=== PATIENT | female | born 1935 | race Caucasian/White ===

== ENCOUNTER 2019-02-27 11:01 | Emergency (ER) | payer MEDICARE ==
[2019-02-27 11:12] VITALS: BP 170/72
[2019-02-27] MEDS ORDERED: CIPROFLOXACIN HCL/DEXAMETH OTIC DROP 7.5 ML AU ONE (13:25)
--- NOTE | 2019-02-27 14:10 | ER Document Report ---
HPI - HPI Patient complains to provider of: Bilateral ear pain Time Seen by Provider: 02/27/19 13:19 Pain Level: 2 Context: Patient is an 83-year-old female presents to the emergency department for bilateral ear pain. Patient states she has had bilateral ear pains for the last couple of months. States at times it is hard for her to hear out of both ears. Patient's son is in the room states she has not seen a doctor in "for ever", states she has no medical problems. Patient's denying taking any known medications. Patient states "I always have a runny nose." Denies cough or fever. - CONSTITUTIONAL Constitutional: DENIES: Fever, Chills - EENT EENT: REPORTS: Ear Pain Past Medical History - General Information source: Patient, Relative - Social History Smoking Status: Unknown if Ever Smoked Family History: Reviewed & Not Pertinent Patient has suicidal ideation: No Patient has homicidal ideation: No Renal/ Medical History: Denies: Hx Peritoneal Dialysis Vertical Provider Document - CONSTITUTIONAL Agree With Documented VS: Yes Notes: GENERAL: Alert, interacts well. No acute distress. HEAD: Normocephalic, atraumatic. EYES: Pupils equal, round, and reactive to light. Extraocular movements intact. ENT: Oral mucosa moist, tongue midline. Nares patent, pharynx within normal limits no palatal petechiae noted. TM's non visualized due to swelling noted in canal. Tragal tenderness noted bilaterally. No mastoid erythema or tenderness noted bilaterally. NECK: Full range of motion. Supple. Trachea midline. LUNGS: Clear to auscultation bilaterally, no wheezes, rales, or rhonchi. No respiratory distress. HEART: Regular rate and rhythm. No murmur ABDOMEN: Soft, non-tender. Non-distended. Bowel sounds present in all 4 quadrants. EXTREMITIES: Moves all 4 extremities spontaneously. No edema, normal radial and dorsalis pedis pulses bilaterally. No cyanosis. BACK: no cervical, thoracic, lumbar midline tenderness. No saddle anesthesia, normal distal neurovascular exam. NEUROLOGICAL: Alert and oriented x3. Normal speech. cranial nerves II through XII grossly intact. PSYCH: Normal affect, normal mood. SKIN: Warm, dry, normal turgor. No rashes or lesions noted. - INFECTION CONTROL TRAVEL OUTSIDE OF THE [place] IN LAST 30 DAYS: No Course - Re-evaluation Re-evalutation: Earwick placed in bilateral ears started on Ciprodex. Discussed continued use of antibiotics with follow-up with [facility]. Discussed patient's elevated blood pressure reading. Patient and son voiced they do not like doctors and will not follow-up. Discussed giving them information for [facility] in [facility] for continued care. At this time will discharge with return precautions and follow-up recommendations. Verbal discharge instructions given a the bedside and opportunity for questions given. Medication warnings reviewed. Patient is in agreement with this plan and has verbalized understanding of return precautions and the need for primary care follow-up in the next 24-72 hours. This medical record was dictated with voice recognizing software. There may be grammatical, syntax errors that are unintended. - Vital Signs Vital signs: Temp Pulse Resp BP Pulse Ox 97.5 F 75 18 170/72 H 97 02/27/19 11:09 02/27/19 11:09 02/27/19 11:09 02/27/19 11:09 02/27/19 11:09 Discharge - Discharge Clinical Impression: Otitis externa Qualifiers: Otitis externa type: unspecified type Chronicity: acute Laterality: unspecified laterality Qualified Code(s): H60.509 - Unspecified acute noninfective otitis externa, unspecified ear Condition: Stable Disposition: HOME, SELF-CARE Instructions: Using Ear Drops with a Wick ([facility]), Use of Ear Drops ([facility]), Otitis Externa ([facility]) Additional Instructions: As we discussed you have been seen and treated in the emergency department for an outer ear infection. Please make sure you use antibiotic drops as prescribed. Please also make sure he follow-up with a primary care provider. Phone numbers for [facility] will be provided in this packet. Your blood pressure was elevated at today's visit. It is my recommendation that you follow-up with a primary care provider for continued testing. Please return to the emergency room for any concerns. Prescriptions: Ciprofloxacin HCl/Dexameth [Ciprodex Otic Suspension 7.5 ml Bottle] 4 drop AU BID 10 Days #1 bottle Forms: Elevated Blood Pressure Referrals: [facility] [Provider Group] - Follow up as needed [facility] [Provider Group] - Follow up as needed
== END 2019-02-27 14:20 | disposition home or self-care (01) ==
LOC: ER 11:01
DX: H60.509 Unspecified acute noninfective otitis externa, unspecified ear (principal); H92.03 Otalgia, bilateral; J34.89 Other specified disorders of nose and nasal sinuses
CPT/HCPCS: 99282; J3490

== ENCOUNTER 2019-03-16 04:27 | Emergency (ER) | payer MEDICARE ==
[2019-03-16] MEDS ORDERED: IBUPROFEN 600 MG TABLET PO ONE ×2 (06:42→06:49)
[2019-03-16] MEDS ORDERED: ACETAMINOPHEN 325 MG TABLET PO ONE (06:42)
--- NOTE | 2019-03-16 06:47 | ER Document Report ---
HPI - HPI Time Seen by Provider: 03/16/19 06:16 Pain Level: 4 Context: Patient is an 83-year-old female who presents emergency department with a chief complaint of back pain. She states that she thought she had a bug bite on her back, but there is no regina. Son brought her in and apparently according to the son, the patient is stubborn and tried to lift a TV. The patient admitted to trying to lift a TV and hurt her back about 5 days ago. Patient does not have any past medical history. She does not take any medications. She did not try to take ibuprofen or Tylenol. She denies any paresthesias, weakness, or any other symptoms. - CONSTITUTIONAL Constitutional: DENIES: Fever, Chills - EENT EENT: DENIES: Sore Throat, Ear Pain, Eye problems - CARDIOVASCULAR Cardiovascular: DENIES: Chest pain - RESPIRATORY Respiratory: DENIES: Trouble Breathing, Coughing - GASTROINTESTINAL Gastrointestinal: DENIES: Abdominal Pain, Black / Bloody Stools - URINARY Urinary: DENIES: Dysuria, Urgency, Frequency - MUSCULOSKELETAL Musculoskeletal: DENIES: Extremity pain Past Medical History - Social History Smoking Status: Unknown if Ever Smoked Drug Abuse: None Family History: Reviewed & Not Pertinent Patient has suicidal ideation: No Patient has homicidal ideation: No Renal/ Medical History: Denies: Hx Peritoneal Dialysis Vertical Provider Document - CONSTITUTIONAL Agree With Documented VS: Yes Exam Limitations: No Limitations General Appearance: No Apparent Distress, Thin - INFECTION CONTROL TRAVEL OUTSIDE OF THE [place] IN LAST 30 DAYS: No - HEENT HEENT: Atraumatic, Normocephalic, PERRLA - NECK Neck: Normal Inspection, Supple - RESPIRATORY Respiratory: Breath Sounds Normal, No Respiratory Distress - CARDIOVASCULAR Cardiovascular: Regular Rate, Regular Rhythm Pulses: Normal: Radial - BACK Back: Normal Inspection - MUSCULOSKELETAL/EXTREMETIES Musculoskeletal/Extremeties: FROM, Tender - Paraspinous areas on thoracic back - NEURO Level of Consciousness: Awake, Alert, Appropriate Motor/Sensory: No Motor Deficit, No Sensory Deficit, No Pronator Drift Deep Tendon Reflexes: 2+ - DERM Integumentary: Warm, Dry, No Rash Course - Re-evaluation Re-evalutation: 03/16/19 I did not see any insect bite on the patient's back. She states that she thinks that when she had tried to lift the TV at her house she may have pulled a muscle. She will be given ibuprofen and Tylenol to help with pain relief. The patient is very thin and I explained to her that although she would like to be independent, she should have her son help her move things. She is in agreement with this plan. I have a very low suspicion for cauda equina syndrome, slipped disc, or any life-threatening back injury at this time. Patient is nice and strong. She will follow-up with her primary care provider. Follow-up precautions were given. Verbal discharge instructions were given to the patient. They verbalized understanding. They are stable for discharge. Patient's oxygen saturation was 88 on room air when she came in, but her repeat oxygen saturation was 99 on room air. Blood pressure had come down. Patient's vital signs are stable at the time of discharge. - Vital Signs Vital signs: Temp Pulse Resp BP Pulse Ox 97.4 F 76 20 187/102 H 88 L 03/16/19 04:35 03/16/19 04:35 03/16/19 04:35 03/16/19 04:35 03/16/19 04:35 Discharge - Discharge Clinical Impression: Back pain Qualifiers: Back pain location: thoracic back pain Chronicity: acute Back pain laterality: bilateral Qualified Code(s): M54.6 - Pain in thoracic spine Condition: Stable Disposition: HOME, SELF-CARE Additional Instructions: You are seen today in the emergency department for back pain. You can take Tylenol 650 mg and ibuprofen 400 mg every 6 hours for your pain. There is no insect bite or spider bite noted on your back. If you continue to have back pain, please follow-up with a primary care provider.
[2019-03-16 06:52] VITALS: BP 174/83
== END 2019-03-16 07:18 | disposition home or self-care (01) ==
LOC: ER 04:27
DX: M54.6 Pain in thoracic spine (principal)
CPT/HCPCS: 99283; A9270 ×2